=== PATIENT | female | born 1940 | race Caucasian/White ===

== ENCOUNTER 2021-10-12 11:51 | Outpatient (CLI) | payer MEDICARE, SELFPAY ==
--- NOTE | 2021-10-12 12:06 | RAD_ITS ---
INDICATION: CHRONIC COUGH EXAMINATION/TECHNIQUE: X-RAY - XR Chest 2 Views COMPARISON: None. FINDINGS: The lungs are clear. Tortuous and calcified thoracic aorta. The heart is not enlarged. No pleural effusion or pneumothorax. Degenerative changes of the thoracic spine and shoulders. RAD/Chest PA and Lateral IMPRESSION: No acute radiographic abnormalities. Electronically Signed: Reyes Chacon MD at 21:45 EST Tel , Service support ,
== END 2021-10-12 23:59 | disposition short-term general hospital (02) ==
LOC: RAD 11:59
PROVIDERS: PCP Nurse Practitioner Family; Referring Provider Otolaryngology Otolaryngology/Facial Plastic Surgery; Visit Provider Otolaryngology Otolaryngology/Facial Plastic Surgery
DX: R05.9 Cough, unspecified (principal)
CPT/HCPCS: 71046

== ENCOUNTER → 2022-10-12 | Outpatient (CLI) | payer MEDICARE, SELFPAY ==
--- NOTE | 2022-10-12 09:56 | CDU_ITS ---
Reason For Study: Bruit Rt. Velocities/BP Lt. Velocities/BP Prox CCA 77.8/15.4 cm/sec. Prox CCA 62.6/14.5 cm/sec. Mid CCA 70.2/13.5 cm/sec. Mid CCA 53.2/13.5 cm/sec. Dist CCA 57.9/17.3 cm/sec. Dist CCA 45.6/14.5 cm/sec. Prox ICA 58.9/11.6 cm/sec. Prox ICA 439.8/175.8 cm/sec. Mid ICA 68.3/17.3 cm/sec. Mid ICA 335.3/84.9 cm/sec. Dist ICA 67.4/20.1 cm/sec. Dist ICA 97.2/22.6 cm/sec. Rt. ICA/CCA = 0.97. Lt. ICA/CCA = 8.27. Prox ECA 75.9/11.6 cm/sec. Prox ECA 246.6/33.3 cm/sec. Rt. Vert. 67.4/20.1 cm/sec. Lt. Vert. 64.2/20 cm/sec. Right Extracranial There is intimal thickening but no significant atherosclerotic plaque noted in the right common carotid artery. There is intimal thickening but no significant atherosclerotic plaque noted in the right internal carotid artery. There is intimal thickening but no significant atherosclerotic plaque noted in the right external carotid artery. Antegrade flow is noted in the right vertebral artery. Left Extracranial There is homogeneous, smooth atherosclerotic plaque noted in the left common carotid artery. There is homogeneous, irregular atherosclerotic plaque noted in the left internal carotid artery. There is homogeneous, irregular atherosclerotic plaque noted in the left external carotid artery. Antegrade flow is noted in the left vertebral artery. Procedure Carotid Duplex 55293. This is a Carotid Duplex examination using B-mode, color flow and specral Doppler. Preliminary report given to Britt NANCE. Exam performed in department. VL/Carotid Duplex Ultrasound Interpretation Summary Normal right extracranial internal carotid. Severe (>70%) stenosis left extracranial internal carotid. Patent and antegrade vertebrals bilaterally. Ordering Physician: George Herndon Referring Physician: Shonda Rucker Performed By: Pau Brady RVT
[2022-10-13 10:59] LABS: Absolute Lymphocyte Count 2.64 X10^3/uL (0.83-4.51); Absolute Neutrophil Count 5.2 X10^3/uL (2.0-7.7); Basophil# 0.05 X10^3/uL; Basophil% 0.6 % (0-1); Eosinophil# 0.17 X10^3/uL; Hematocrit 40.8 % (37-47); Hemoglobin 13.6 g/dL (12.0-15.0); Lymphocyte # 2.64 X10^3/ul (0.83-4.51); Lymphocyte % 30.3 % (19-41); Mean Corp Hgb Conc 33.3 g/dL (32-36); Mean Corpuscular Hgb 31.1 pg (27.0-32.0); Mean Corpuscular Volume 93.4 fL (81-99); Mean Platelet Vol. 10.1 fl (6.2-12.0); Monocyte# 0.67 X10^3/uL; Monocyte% 7.7 % (0-10); NRBC Flagged by Analyzer 0 % (0-5); Neutrophil # 5.15 X10^3/uL (2.7-7.7); Neutrophil % 59.1 % (47-70); Platelet Count 279 K/mm3 (150-450); RBC Distribution Width CV 14.3 % (11.6-14.6); RBC Distribution Width SD 49.2 fl (35.1-43.9); Red Blood Count 4.37 M/mm3 (4.2-5.4); White Blood Count 8.7 K/mm3 (4.4-11.0)
[2022-10-13 11:35] LABS: Anion Gap 6 (5-15); BUN 17 mg/dL (7-18); BUN/Creat Ratio 18.9 RATIO (10-20); Calcium,Total 9.6 mg/dL (8.5-10.1); Chloride 106 mmol/L (98-107); EST Glomerular Filtration Rate 64 mL/min (>60); Est Glom Filt Rate - Afr Amer 77 mL/min (>60); Glucose 92 mg/dL (74-106); Potassium 4.2 mmol/L (3.5-5.1); Sodium Level 138 mmol/L (136-145)
== END | disposition home or self-care (01) ==
PROVIDERS: Physician Assistant; PCP Registered Nurse; Referring Provider Internal Medicine Cardiovascular Disease; Visit Provider Internal Medicine Cardiovascular Disease
DX: I65.22 Occlusion and stenosis of left carotid artery (principal); I49.1 Atrial premature depolarization; R09.89 Other specified symptoms and signs involving the circulatory and respiratory systems
CPT/HCPCS: 36415; 80048; 85025; 93880

== ENCOUNTER → 2022-11-09 | Outpatient (CLI) | payer MEDICARE, SELFPAY ==
--- NOTE | 2022-11-09 16:00 | CT_ITS ---
STUDY: CTA HEAD AND NECK WITH CONTRAST REASON FOR EXAM: Female, 82 years old patient with carotid stenosis with carotid bruit heard. RADIATION DOSAGE (If Supplied By Facility): CTDIvol = ( 29.15 ) mGy, DLP = ( 1440.05 ) mGycm TECHNIQUE: CT angiography was performed with a multi-detector CT scanner. Data acquisition was obtained from the skull base through the vertex following intravenous administration of 100 mL of IV Isovue-370. MIP images were reconstructed from the axial data set. Post-processing of the angiographic images was performed, with multiplanar reformation and 3D reconstruction. Individualized dose optimization techniques were used for this CT. COMPARISON: No relevant priors. FINDINGS: Normal bilateral petrous carotid arteries. Normal right cavernous carotid artery with a normal supraclinoid bifurcation. Normal left cavernous carotid artery with a normal supraclinoid bifurcation. Normal right A1 segments of the anterior cerebral artery. Normal left A1 segments of the anterior cerebral artery. Normal intact anterior communicating artery (ACOM). Normal bilateral A2 segments of the anterior cerebral arteries. Normal right M1 and M2 segments of the middle cerebral arteries, with a normal M1 bifurcation. Normal left M1 and M2 segments of the middle cerebral arteries, with a normal M1 bifurcation. Normal right posterior communicating artery (PCOM). Normal left posterior communicating artery (PCOM). Normal bilateral vertebral arteries. Normal basilar artery with a normal basilar bifurcation. The visualized bilateral superior cerebellar (SCA) arteries are normal. Normal bilateral P1, P2 and visualized P3 segments of the posterior cerebral arteries. There is no demonstrated aneurysm of the rosebud of [place]. There is no demonstrated abnormality of the visualized brain. AORTIC ARCH: Normal visualized aortic arch. Normal origins of the brachiocephalic, left common carotid, and left subclavian arteries. RIGHT CAROTID ARTERIES: Normal right common carotid artery (CCA). Normal right common carotid bulb. Normal origin of the right internal carotid (ICA) artery without a hemodynamically significant stenosis. Normal visualized cervical portion of the right internal carotid artery. Normal origin of the right external carotid artery (ECA). LEFT CAROTID ARTERIES: Normal left common carotid artery (CCA). Normal left common carotid bulb. Normal origin of the left internal carotid (ICA) artery without a hemodynamically significant stenosis. Normal visualized cervical portion of the left internal carotid artery. Normal origin of the left external carotid artery (ECA). VERTEBRAL ARTERIES: Normal bilateral vertebral arteries. IMPRESSION: Normal CTA Head and neck with contrast. STUDY: CT BRAIN WITHOUT CONTRAST REASON FOR EXAM: Female, 82 years old patient with carotid stenosis with carotid bruit heard. RADIATION DOSAGE (If Supplied By Facility): CTDIvol = ( 29.15 ) mGy, DLP = ( 1440.05 ) mGycm TECHNIQUE: Transaxial CT imaging of the brain was performed without administration of intravenous contrast material. Multiplanar reformations are submitted for interpretation. Individualized dose optimization techniques were used for this CT. COMPARISON: No relevant priors. FINDINGS: Normal soft tissue structures. Normal calvarium. There is moderately severe global cerebral volume loss. There is mild cerebral atrophy with widening of the extra-axial spaces and ventricular dilatation. There are areas of decreased attenuation within the white matter tracts of the supratentorial brain, consistent with microvascular disease changes. Decreased attenuation within the right basal ganglia and external capsule may be the result of previous infarct. Normal brainstem. There is mild cerebellar atrophy. There is no intracranial hemorrhage. There is atherosclerotic calcification of the intracranial arteries. Normal visualized paranasal sinuses. CT/CTA Head AND Neck W/ Contrast IMPRESSION: 1. Chronic involutional changes of the brain. 2. No CT evidence of acute intracranial hemorrhage. Electronically Signed: Anila Dukes MD at 7:12 EST ,
== END | disposition home or self-care (01) ==
LOC: CT 15:59
PROVIDERS: PCP Registered Nurse; Referring Provider Physician Assistant; Visit Provider Physician Assistant
DX: I65.22 Occlusion and stenosis of left carotid artery (principal)
CPT/HCPCS: 70496; 70498; Q9967

== ENCOUNTER 2023-01-04 09:57 | Inpatient (IN) | payer MEDICARE, SELFPAY ==
--- NOTE | 2022-12-28 11:56 | EKG12_ITS ---
Test Reason : PREOP Blood Pressure : / mmHG Vent. Rate : 063 BPM Atrial Rate : 063 BPM P-R Int : 130 ms QRS Dur : 072 ms QT Int : 414 ms P-R-T Axes : 034 016 055 degrees QTc Int : 423 ms Normal sinus rhythm Low voltage QRS Borderline ECG Confirmed by QUITA BOLES, AMY ([id number]), development editor ZENAIDA PEÑA ([id number]) on 12/29/2022 9:19:09 AM Referred By: Coleman Reyna Confirmed By:AMY DEVLIN MD
[2022-12-28 12:39] LABS: Hematocrit 40.4 % (37-47); Hemoglobin 13.2 g/dL (12.0-15.0); Mean Corp Hgb Conc 32.7 g/dL (32-36); Mean Corpuscular Hgb 31.1 pg (27.0-32.0); Mean Corpuscular Volume 95.1 fL (81-99); Mean Platelet Vol. 10.3 fl (6.2-12.0); Platelet Count 300 K/mm3 (150-450); RBC Distribution Width CV 14.5 % (11.6-14.6); RBC Distribution Width SD 50.8 fl (35.1-43.9); Red Blood Count 4.25 M/mm3 (4.2-5.4); White Blood Count 8.4 K/mm3 (4.4-11.0)
[2022-12-28 13:30] LABS: Thyroid Stim Hormone (TSH) 0.71 uIU/mL (0.358-3.74)
[2022-12-28 13:43] LABS: Anion Gap 4 (5-15); BUN 19 mg/dL (7-18); BUN/Creat Ratio 19.5 RATIO (10-20); Calcium,Total 9.4 mg/dL (8.5-10.1); Chloride 108 mmol/L (98-107); Creatinine, Serum 0.98 mg/dL (0.55-1.02); EST Glomerular Filtration Rate 58 mL/min (>60); Est Glom Filt Rate - Afr Amer 70 mL/min (>60); Glucose 79 mg/dL (74-106); Potassium 4.9 mmol/L (3.5-5.1); Sodium Level 137 mmol/L (136-145)
[2023-01-04] VITALS (13 sets, daily range): BP systolic 100–146; BP diastolic 51–68; PULSE 54–66; RESP 14–18; TEMP 36.1–36.7; O2SAT 94–100; BMI 26.4; BMI 26.3
[2023-01-04] MEDS: Lactated Ringers 1,000 ML 15 ML IV (10:37)
--- NOTE | 2023-01-04 10:53 | HP.PCM_ITS ---
History and Physical Allergies dicyclomine [From Bentyl] Adverse Reaction (Severe, Verified 12/06/22 15:05) Extreme Nervousnessomeprazole Adverse Reaction (Severe, Verified 12/06/22 15:05) GIprednisolone Adverse Reaction (Severe, Verified 12/06/22 15:05) Heart Racing Medications aspirin 81 mg tablet,delayed release 81 mg PO QDAY 05/16/18 [History Confirmed 12/06/22] calcium carbonate 600 mg calcium (1,500 mg) tablet 600 mg PO BID 05/16/18 [History Confirmed 12/06/22] cholecalciferol (vitamin D3) 25 mcg (1,000 unit) tablet 1,000 unit PO QDAY 05/16/18 [History Confirmed 12/06/22] multivitamin 1 tab PO QDAY 05/16/18 [History Confirmed 12/06/22] levothyroxine 137 mcg capsule 137 mcg PO DAILY 12/26/18 [History Confirmed 12/06/22] metoprolol succinate 100 mg tablet,extended release 24 hr 100 mg PO DAILY #90 tabs 08/08/22 [Rx Confirmed 12/06/22] omega 9-oqb-msz-fish oil 60 mg-90 mg-500 mg capsule (Fish Oil) 1 cap PO DAILY 10/06/22 [History Confirmed 12/06/22] atorvastatin 80 mg tablet 80 mg PO QHS #90 tabs 10/28/22 [Rx Confirmed 12/06/22] PFSH Medical History?(Updated 12/06/22 @ 16:[address] Coleman Reyna MD) Cardiac dysrhythmia, unspecified Carpal tunnel syndrome Hyperlipidemia Hypothyroidism Premature atrial contractions Premature ventricular contraction Surgical History? H/O left breast biopsy History of cholecystectomy History of right oophorectomy Hx of appendectomy Family History? Mother?? CVA (cerebral vascular accident) Social History? Smoking Status:? Current every day smoker Tobacco: How many years used:? 50 alcohol intake:? never HPI HPI HPI: TIFFANY CASILLAS, is a 82 F who presents to the office today for further discussion of left carotid stenosis, asymptomatic. Found after bruit heard on exam. No prior knowledge of stenosis, no prior numbness/weakness/vision loss/speech difficulty. Has had a duplex and CTA. Tolerating ASA, statin. Not currently on plavix. ROS General General: No weight change, appetite, fatigue, colon cancer, breast cancer or weakness HEENT HEENT: No difficulty swallowing, eye injury, eye surgery, swollen glands or hoarseness Endo Endocrine: Yes thyroid disease; No diabetes mellitus, thyroid cancer, Hair loss, heat intolerance or cold intolerance Skin Skin: No rash or changing moles Musc Musculoskeletal: Yes back problems and arthritis; No rheumatoid arthritis, gout or joint pain Cardio Cardiovascular: No murmur, pacemaker, heart disease, atrial fibrillation, high blood pressure, heart attack, heart stent, palpitations, shortness of breat with exertion or chest pain Psych Psychiatric: Yes anxiety; No depression or hearing voices Resp Respiratory: Yes shortness of breath, No sleep apnea, No cough, No COPD, No a sthma, No emphysema and No wheezing Gastro Gastrointestinal: No abdominal pain, No nausea or vomiting, No diarrhea, No constipation, No blood in stool, Yes acid reflux, Yes hemorrhoids, No ulcers, No gallbladder problem and No black,tarry stools Shahriar Hematologic: Yes blood thinners, No blood disorders, No bleeding, No anemia and No blood clots Neuro Neurologic: No system reviewed and no additional complaints, except as documented, No as per HPI, No abnormal gait, No abnormal hearing, No abnormal movements, No abnormal speech, No behavioral changes, No burning sensations, No confusion, No convulsions, No disequilibrium, No dizziness, No localized weakness, No frequent falls, No headache(s), No lack of coordination, No loss of vision, No memory loss, Yes numbness, No other visual disturbances, No radicular pain, No restless legs, No sensory deficit, No syncope, Yes tingling, No tremor(s), No weakness and No other Exam Const General: cooperative, healthy appearing, comfortable, no acute distress and well developed Nutritional Appearance: well nourished Orientation: alert, awake and oriented x3 HENMT Head: normocephalic and atraumatic Ears: hearing grossly normal bilaterally Nose: external nose normal Eyes General: appearance normal, both eyes and all related structures EOM: EOM intact bilaterally Neck Neck: normal visual inspection, full ROM, no lymphadenopathy and trachea midline Thyroid: thyroid normal Lymphatic: no lymphadenopathy noted Resp Effort & Inspection: normal respiratory effort, able to speak in complete sentences, symmetric chest movement, no audible wheezes, not labored, no stridor and no use of accessory muscles Auscultation: clear to auscultation bilaterally Cardio Rate: regular rate Rhythm: regular rhythm Heart Sounds: murmur Bruits: carotid bruit Pulses: brachial pulses present and radial pulses present Skin General: no rashes or lesions noted and no erythema Wounds: no wounds Neuro Cranial Nerves: CN's II-XI intact bilaterally and EOM intact bilaterally Speech: speech normal Gait: normal gait Motor: strength 5/5 throughout Sensory Exam: no sensory deficits noted Extremities Pulses: Absent: Right Dorsalis Pedis Pulse, Left Dorsalis Pedis Pulse, Right Posterior Tibial Pulse and Left Posterior Tibial Pulse Lower Extremity Edema: None: Bilateral Psych Appearance: grossly normal and well kempt Mental Status: mental status grossly normal Mood: congruent mood Speech and Movement: speech and movement normal Thought Content: normal Judgment: judgment good Coding Level of Care Code Off vis,est,level 3 Diagnoses Carotid artery stenosis? I65.29 Assessment and Plan Assessment and Plan (1) Carotid artery stenosis: -left cea
--- NOTE | 2023-01-04 12:00 | PLAQ_PTH ---
PATIENT: TIFFANY CASILLAS LOC: ICU U#:[id number] AGE/SX: 82/F ROOM: ICU01 RE01/04/[address]: Dr. Coleman Reyna MD : 1940 BED: 1 DIS: 01/05/2023 SPEC #: [id number] RECD: 01/04/23 16:41 STATUS: ZEINAB REQ #: [id number] MEERA: 01/04/23 12:[address]: Coleman Reyna DEPT: SURGICAL PATHOLOGY RECD BY: Scarlett Poewrs ENTERED: 01/05/23 07:55 SP TYPE: PLAQUE OTHR DR: MD Shonda Mcmahan, [employer] SUPERVISOR-C Tissues: PLAQUE Procedures: Decalcification bone/plaque Surgery Specimen Level III HEADER OPERATION: Carotid endarterectomy PRE-OP DIAGNOSIS: Carotid artery stenosis TISSUE SUBMITTED: Carotid plaque MICROSCOPIC DIAGNOSIS Carotid plaque, endarterectomy: Atherosclerotic plaque consistent with severe stenosis. AM:getachew 01/09/2023 GROSS DESCRIPTION Received in fixative is one container labeled with the patient's name and designated carotid plaque. The specimen consists of a yellow-sky calcified plaque-like material measuring 3.0 x 1.0 x 0.7 cm. The specimen is sectioned and totally submitted in one cassette after decalcification. / AM:getachew 01/05/2023 TC:5 CPT: 92177, 86050
[2023-01-04] MEDS: Cefazolin 2 GM in 0.9% Normal Saline 100 ML IV (12:20)
[2023-01-04] MEDS: Heparin Injection (Vial) 5,000 UNIT/ML VIAL 5000 UNIT (13:00)
[2023-01-04] MEDS: Bupivacaine 0.25% 30 ML Vial (15:11)
--- NOTE | 2023-01-04 15:17 | OP.PCM_ITS ---
Report of Operation Date of Procedure: 01/04/23 Pre-Operative Diagnosis: left carotid stenosis Post-Operative Diagnosis: same Surgery/Procedure Performed:: left carotid endarterectomy Surgeon: Coleman Reyna Type of Anesthesia: General Drains: 19 Fr CLEM Estimated Blood Loss (mL): 5 Description of Procedure: HPI: Patient is an 82-year-old female with high-grade left internal carotid artery stenosis which is asymptomatic in nature. She is on optimal medical therapy, and CT angiography confirmed patient was a potential candidate for either carotid endarterectomy or carotid stenting of which the patient chose endarterectomy. She is taken now for elective left carotid endarterectomy. Description of procedure: Upon obtaining informed consent and verification correct patient procedure site the patient was taken to the operating room she was placed under general anesthesia. She was then positioned prepped and draped in usual sterile fashion and timeout performed. Oblique incision made along the anterior border the sternocleidomastoid and Bovie electrocautery was dissect down through subcutaneous tissue to the platysma which was then divided. Self- retaining retractors then put in position and further dissection carried down to the anterior border the sternocleidomastoid which was freed allowing lateral retraction exposing the jugular vein. Sharp dissection was then used to dissect free the anterior surface of the jugular vein, with the facial vein identified and ligated with silk ties and divided. Sharp dissection was then used to dissect free the proximal common carotid artery with care taken to identify and protect the vagus nerve which was in its normal anatomic position. The vessel was then dissected free circumferentially and a right angle was placed vessel loop. We then turned attention to the distal internal carotid artery which was dissected free beyond the area of visible plaque, with care taken to identify and protect the hypoglossal and vagus nerves. The vessel was then circumferentially dissected free and a running was placed vessel loop. Patient was then heparinized allowed to circulate for 3 minutes with serial ACT's performed for heparin dosing. Next the external carotid artery was dissected free and a right angle was placed vessel loop. This was then occluded first the internal followed by the common and external. Longitudinal arteriotomy was created with 11 blade on the common carotid artery and extended with Holland scissors onto the internal carotid artery beyond the area of plaque. A 10 [place] shunt was then placed first distally in the internal carotid artery and allowed to backbleed before placing proximally in the common carotid artery. The shunt was interrogated with Doppler and found to be patent with low resistance signal. We then performed her endarterectomy with a freer elevator, with satisfactory endpoint distally on the internal carotid artery and eversion endarterectomy on the external carotid artery. The lumen was flushed with heparinized saline to clear debris in the distal endpoint tacked with 7-0 Prolene interrupted sutures. A bovine pericardial patch was brought in the field and secured in position using 6-0 Prolene in a running fashion. Prior to completing the suture line the shunt was removed and the vessels backbled. After completing the suture line the internal carotid artery was allowed to backbleed and the bifurcation then reoccluded as origin. Clamps were then removed from the external and common carotid arteries allowing 10 heartbeats of antegrade flow to flush into the external carotid artery before reestablishing flow into the internal carotid artery. Satisfactory stasis was noted along the suture line the patient was then reversed with protamine. A 19 [place]ian channel CLEM was placed via separate stab incision and Surgicel topical hemostatic applied. Once satisfactory hemostasis was found the incision was closed with 2- 0 Vicryl, 3-0 Vicryl, 4 Monocryl and Dermabond for the skin. Dry sterile dressings were then applied and the patient was awakened from anesthesia moving all extremities to command. She was then taken to the intensive. For close hemodynamic and neurologic monitoring.
[2023-01-04] MEDS: Dext 5%-0.45% NS 1,000 ML 75 ML IV (17:23)
[2023-01-04] MEDS: Cefazolin 1 GM/50 ML BAG IV (20:35)
[2023-01-04] MEDS: Acetaminophen 500 MG Tablet 1000 MG PO (20:40)
[2023-01-04] MEDS: Atorvastatin Calcium 80 MG Tablet PO (20:41)
[2023-01-05] VITALS (12 sets, daily range): BP systolic 97–121; BP diastolic 43–72; PULSE 56–65; RESP 14–17; TEMP 36.2–36.6; O2SAT 94–98; BMI 27.1
[2023-01-05] MEDS: Cefazolin 1 GM/50 ML BAG IV (04:10)
[2023-01-05] MEDS: Acetaminophen 500 MG Tablet 1000 MG PO (05:51)
[2023-01-05] MEDS: Levothyroxine 137 MCG Tablet PO (05:51)
[2023-01-05 06:12] LABS: Absolute Lymphocyte Count 2.44 X10^3/uL (0.83-4.51); Absolute Neutrophil Count 5.9 X10^3/uL (2.0-7.7); Basophil# 0.04 X10^3/uL; Basophil% 0.4 % (0-1); Eosinophil# 0.07 X10^3/uL; Eosinophils% 0.8 % (0-5); Hematocrit 31.4 % (37-47); Hemoglobin 10.5 g/dL (12.0-15.0); Lymphocyte # 2.44 X10^3/ul (0.83-4.51); Lymphocyte % 26.7 % (19-41); Mean Corp Hgb Conc 33.4 g/dL (32-36); Mean Corpuscular Hgb 31.2 pg (27.0-32.0); Mean Corpuscular Volume 93.2 fL (81-99); Mean Platelet Vol. 10.4 fl (6.2-12.0); Monocyte# 0.72 X10^3/uL; Monocyte% 7.9 % (0-10); NRBC Flagged by Analyzer 0 % (0-5); Neutrophil # 5.85 X10^3/uL (2.7-7.7); Platelet Count 251 K/mm3 (150-450); RBC Distribution Width CV 14.6 % (11.6-14.6); Red Blood Count 3.37 M/mm3 (4.2-5.4)
[2023-01-05 06:27] LABS: White Blood Count 9.1 K/mm3 (4.4-11.0)
[2023-01-05] MEDS: Dext 5%-0.45% NS 1,000 ML 75 ML IV (06:43)
[2023-01-05 08:19] LABS: Anion Gap 5 (5-15); BUN 11 mg/dL (7-18); BUN/Creat Ratio 14.3 RATIO (10-20); Calcium,Total 8.1 mg/dL (8.5-10.1); Chloride 107 mmol/L (98-107); Creatinine, Serum 0.77 mg/dL (0.55-1.02); EST Glomerular Filtration Rate 76 mL/min (>60); Est Glom Filt Rate - Afr Amer 92 mL/min (>60); Estimated Creatinine Clearance 37.45 ml/min; Glucose 123 mg/dL (74-106); Potassium 3.5 mmol/L (3.5-5.1); Sodium Level 137 mmol/L (136-145)
[2023-01-05] MEDS: Metoprolol(XL)Succ 100 MG Tablet PO (09:05)
[2023-01-05] MEDS: Aspirin E.C. 81 MG Tablet PO (09:06)
[2023-01-05] MEDS: Multivitamins,Therapeutic Tablet 1 TABLET PO (09:06)
[2023-01-05] MEDS: Cholecalciferol (VIT D3) 25 MCG TABLET (1,000 UNITS) PO (09:06)
[2023-01-05] MEDS: Enoxaparin 40 MG/0.4 ML Syringe SC (09:06)
[2023-01-05] MEDS: Calcium (Elemental) 500 MG Tablet PO (09:06)
[2023-01-05 12:04] LABS: ACT Activated Clotting Time 293 sec (74-137)
[2023-01-05 12:04] LABS: ACT Activated Clotting Time 119 sec (74-137)
--- NOTE | 2023-01-05 12:05 | PCM.PN.SRG ---
Subjective Subjective Feeling better this morning, no numbness/weakness/vision loss/speech difficulty. Mild headache, has not worsened since yesterday. Tammi diet, up in chair. Objective Data Objective Data A&O x 3, NAD RRR Resp non labored CN intact, motor/sensory intact Inc C/D/I no hematoma/erythema CLEM sero-sang Vital Signs: Vital Signs Temp Pulse Resp BP Pulse Ox O2 Del Method FiO2 97.1 F L 59 L 17 121/72 H 94 Room Air 100 01/05/23 08:00 01/05/23 11:00 01/05/23 11:00 01/05/23 11:00 01/05/23 11:00 01/05/23 11:00 01/04/23 15:44 Oxygen Delivery Method Room Air Weight: 158 lb 15.253 oz Body Mass Index (BMI) 27.1 Intake & Output: Intake and Output for Last 24 Hours 01/03/23 01/04/23 01/05/23 23:59 23:59 23:59 Intake Total 160 / 160 1050 / 1050 Output Total 30 / 30 Balance 160 / 160 1020 / 1020 Lab / Micro Data Result Diagrams: 01/05/23 04:15 01/05/23 04:15 Labs: Laboratory Results - last 24 hr 01/04/23 12:35: Activated Clotting Time 119 01/04/23 13:47: Activated Clotting Time 293 H 01/05/23 04:15: WBC 9.1, RBC 3.37 L, Hgb 10.5 L, Hct 31.4 L, MCV 93.2, MCH 31.2, MCHC 33.4, RDW Std Deviation 50.0 H, RDW Coeff of Gloria 14.6, Plt Count 251, MPV 10.4, Immature Gran % (Auto) 0.200, Neut % (Auto) 64.0, Lymph % (Auto) 26.7, Gregg % (Auto) 7.9, Eos % (Auto) 0.8, Baso % (Auto) 0.4, Absolute Neuts (auto) 5.9, Absolute Lymphs (auto) 2.44, Nucleated RBC % 0 01/05/23 04:15: Sodium 137, Potassium 3.5, Chloride 107, Carbon Dioxide 25.0, Anion Gap 5, BUN 11, Creatinine 0.77, Estim Creat Clear Calc 37.45, Est GFR (MDRD) Af Amer 92, Est GFR (MDRD) Non-Af 76, BUN/Creatinine Ratio 14.3, Glucose 123 H, Calcium 8.1 L Assessment & Plan Assessment/Plan (1) Carotid artery stenosis: PLAN: -neuro intact -hemodynamically stable -progressive diet and ambulation -CLEM removed -DC plan later today if doing well and no worsening/severe headache
--- NOTE | 2023-01-05 12:09 | DS.PCM_ITS ---
Providers Date of Admission: 01/04/23 Primary Care Physician: Shonda Rucker NP-C Reason For Visit: LEFT CAROTID ENDARTERECTOMY Diagnosis Discharge Diagnosis (1) Carotid artery stenosis: Status: Acute Code(s): I65.29 - Occlusion and stenosis of unspecified carotid artery Plan: -neuro intact -hemodynamically stable -progressive diet and ambulation -CLEM removed -DC plan later today if doing well and no worsening/severe headache Medications at Discharge Home Medications aspirin 81 mg tablet,delayed release 81 mg PO QDAY HEART HEALTH 05/16/18 calcium carbonate 600 mg calcium (1,500 mg) tablet 600 mg PO BID SUPPLEMENT 05/16/18 cholecalciferol (vitamin D3) 25 mcg (1,000 unit) tablet 1,000 unit PO QDAY SUPPLEMENT 05/16/18 multivitamin 1 tab PO QDAY SUPPLEMENT 05/16/18 levothyroxine 137 mcg capsule 137 mcg PO DAILY THYROID 12/26/18 omega 3-bpt-jxv-fish oil 60 mg-90 mg-500 mg capsule (Fish Oil) 1 cap PO DAILY SUPPLEMENT 10/06/22 atorvastatin 80 mg tablet 80 mg PO QHS CHOLESTEROL 12/21/22 metoprolol succinate 100 mg tablet,extended release 24 hr 100 mg PO DAILY HEART 12/21/22 oxycodone 5 mg tablet 5 mg PO Q4H PRN PRN Pain Score 4-10 4 days #12 tabs 01/05/23 Hospital Course Operations - (left carotid endarterectomy ) Summary of Care Provided Hospital Course: Patient presented 01/04/2023 for elective outpatient left carotid endarterectomy for stroke prevention. She tolerated the procedure well and was admitted to the intensive care unit postop for hemodynamic and neurologic monitoring. Overnight she was hemodynamically stable with no need for significant blood pressure adjusting medications, was neurologically intact, and with no signs of any bleeding. On the morning of postoperative day # 1 her arterial line was removed, CLEM was removed, and she was progressed along activity and diet. After she was tolerating regular diet, ambulating without difficulty, and voiding she was prepared for discharge in the afternoon of postoperative day #1. Physical Exam Const alert, oriented x3, no apparent distress and healthy appearing General Appearance: cooperative; Negative for combative or lethargic Orientation / Consciousness: awake Exam Limitations: no limitations HEENT Head and Scalp: normocephalic and atraumatic Eyes EOMs intact bilaterally General Eye: normal appearance of both eyes Neck full ROM General: trachea midline Lymph Lymphatic: Negative for no lymphadenopathy noted Resp normal respiratory effort and no use of accessory muscles Effort and Inspection: Negative for labored, stridor or audible wheezes Cardio regular rate and regular rhythm Peripheral Pulses: radial pulses present Back/Spine Cervical Spine: cervical ROM normal Extremity full ROM, normal capillary refill and no clubbing, cyanosis or edema Skin no rashes or lesions noted Neuro oriented x3, CN's II-XII intact bilaterally, no focal motor deficits and no sensory deficits noted Psych thought process normal, cooperative, affect normal, speech normal and activity/motor behavior normal Weight / BMI Weight Weight: 158 lb 15.253 oz Body Mass Index (BMI) 27.1 ABG / Lab / Microbiology Data Result Diagrams: 01/05/23 04:15 01/05/23 04:15 Laboratory: Laboratory Results - last 24 hr 01/04/23 12:35: Activated Clotting Time 119 01/04/23 13:47: Activated Clotting Time 293 H 01/05/23 04:15: WBC 9.1, RBC 3.37 L, Hgb 10.5 L, Hct 31.4 L, MCV 93.2, MCH 31.2, MCHC 33.4, RDW Std Deviation 50.0 H, RDW Coeff of Gloria 14.6, Plt Count 251, MPV 10.4, Immature Gran % (Auto) 0.200, Neut % (Auto) 64.0, Lymph % (Auto) 26.7, [place] % (Auto) 7.9, Eos % (Auto) 0.8, Baso % (Auto) 0.4, Absolute Neuts (auto) 5.9, Absolute Lymphs (auto) 2.44, Nucleated RBC % 0 01/05/23 04:15: Sodium 137, Potassium 3.5, Chloride 107, Carbon Dioxide 25.0, Anion Gap 5, BUN 11, Creatinine 0.77, Estim Creat Clear Calc 37.45, Est GFR (MDRD) Af Amer 92, Est GFR (MDRD) Non-Af 76, BUN/Creatinine Ratio 14.3, Glucose 123 H, Calcium 8.1 L D/C Instructions Discharge Diet: No restrictions May shower in (days): 1 Lifting Restrictions: do not lift > 20 lbs for 3 weeks Call your doctor if your incision/area has: Sudden Increased Bleeding, Increased Pain/ Swelling, Increased Redness and Foul Smelling Discharge Call your doctor if you observe: Fever of 101 or Higher Remove Dressing in: 1 day Cleanse incision/area with: Soap & Water Meaningful Use Info Meaningful Use Diagnoses (Choose all that apply): None applicable Discharge Plan Admission Admit Date/Time: 01/04/23 09:57 Attending Provider: Coleman Reyna Primary Care Provider: Shonda Rucker NP Consulting Providers: Pola Muir Discharge Orders/Prescriptions Prescriptions: New oxycodone 5 mg Tablet 5 mg PO Q4H PRN PRN (Reason: Pain Score 4-10) 4 Days Qty: 12 0RF Continued aspirin 81 mg tablet,delayed release (DR/EC) 81 mg PO QDAY calcium carbonate 600 mg calcium (1,500 mg) tablet 600 mg PO BID multivitamin tablet 1 tab PO QDAY cholecalciferol (vitamin D3) 1,000 unit tablet 1,000 unit PO QDAY omega 9-ace-mua-fish oil [Fish Oil] 60-90-500 mg capsule 1 cap PO DAILY atorvastatin 80 mg tablet 80 mg PO QHS metoprolol succinate 100 mg tablet extended release 24 hr 100 mg PO DAILY levothyroxine 137 mcg capsule 137 mcg capsule 137 mcg PO DAILY Referrals / Follow Up: Shonda Rucker NP, [employer]-C [Primary Care Provider] - Disposition Disposition (needs filled in before D/C Order can be placed): Home, Self Care
[2023-01-05 12:11] LABS: ACT Activated Clotting Time 263 sec (74-137)
--- NOTE | 2023-01-05 12:30 | CASEMGMT ---
RN CM Face to Face with patient for initial transition planning/care coordination assessment. RN CM introduced self and role at [facility]. Patient lying in bed, alert and oriented, grandson at bedside. Patient willing to participate in assessment and is able to answer all questions appropriately. Care providers, pharmacy, and demographics verified. Patient wishes to discharge home, denies need for home health at this time. Patient states she has no further needs or concerns at this time. CM to follow for discharge planning needs that may arise. PCP: Alka CALLAWAY Specialists: Summer Aviles Pharmacy: [facility] Insurance: [employer] [facility] Prescription Benefit: yes Living Will/HPOA: yes, son Nile Jones Jr LNOK: son, DAVID Living Arrangements: Patient lives alone in a single floor condo with 1 step to enter. Patient states she is independent at home. Transportation: self DME/HHC: Patient has grab bars and built in shower chair at home. No previous HHC or SNF. Disposition Plan: Patient to discharge home with family support and follow-up plans in place. Pau ALTAMIRANO, RN, CM
== END 2023-01-05 13:30 | disposition home or self-care (01) | DRG 39 ==
LOC: ACINP 10:00 → ICU 16:00
PROVIDERS: Anesthesiology; Admitting Provider Surgery Trauma Surgery; PCP Registered Nurse; Referring Provider Surgery Trauma Surgery; Visit Provider Surgery Trauma Surgery
PROC: 03CL0ZZ Extirpation of Matter from Left Internal Carotid Artery, Open Approach (ICD-10-PCS; CPT 35301; principal; 2023-01-04 11:40)
DX: I65.22 Occlusion and stenosis of left carotid artery (principal); E03.9 Hypothyroidism, unspecified; E78.5 Hyperlipidemia, unspecified; F17.200 Nicotine dependence, unspecified, uncomplicated; Z79.82 Long term (current) use of aspirin; Z79.890 Hormone replacement therapy; Z79.899 Other long term (current) drug therapy
CPT/HCPCS: 36415; 80048; 84443; 85025; 85027; 85347; 86850; 86900; 86901; 88304; 88311; 93005; 94668; 97802; A4648; J7030; J7120; J7799

== ENCOUNTER → 2024-05-17 | Outpatient (CLI) | payer MEDICARE, SELFPAY | END | disposition home or self-care (01) | PROVIDERS: PCP Registered Nurse; Referring Provider Internal Medicine Endocrinology, Diabetes & Metabolism; Visit Provider Internal Medicine Endocrinology, Diabetes & Metabolism | DX: E03.8 Other specified hypothyroidism (principal) | CPT/HCPCS: 36415; 84443 ==

== ENCOUNTER → 2024-09-09 | Outpatient (CLI) | payer MEDICARE, SELFPAY ==
[2024-09-09 16:20] LABS: ALB/GLOB Ratio 0.8 RATIO (0.9-2.4); AST(SGOT) 28 U/L (15-37); Alanine Aminotransfer ALT/SGPT 28 U/L (13-56); Albumin, Serum 3.3 g/dL (3.2-5.0); Alkaline Phosphatase 72 U/L (45-117); Anion Gap 7 (5-15); BUN 19 mg/dL (7-18); BUN/Creat Ratio 20.3 RATIO (10-20); Calcium,Total 8.8 mg/dL (8.5-10.1); Chloride 108 mmol/L (98-107); Creatinine, Serum 0.94 mg/dL (0.55-1.02); EST Glomerular Filtration Rate 60 mL/min (>60); Est Glom Filt Rate - Afr Amer 73 mL/min (>60); Globulin 3.9 g/dL (2.2-4.2); Glucose 98 mg/dL (74-106); Potassium 4.2 mmol/L (3.5-5.1); Protein, Total 7.2 g/dL (6.4-8.2); Sodium Level 138 mmol/L (136-145)
== END | disposition home or self-care (01) ==
LOC: LAB 14:02
PROVIDERS: PCP Family Medicine; Referring Provider Internal Medicine Endocrinology, Diabetes & Metabolism; Visit Provider Internal Medicine Endocrinology, Diabetes & Metabolism
DX: E03.8 Other specified hypothyroidism (principal)
CPT/HCPCS: 36415; 80053; 84443

== ENCOUNTER → 2024-12-03 | Outpatient (CLI) | payer MEDICARE, SELFPAY ==
--- NOTE | 2024-12-03 13:43 | VDLE_ITS ---
Reason For Study Reason For Study: BLE Pain RIGHT LEFT GSV is normal. GSV is normal. CFV is compressible, spontaneous, phasic, competent CFV is compressible, spontaneous, phasic, competent, and demonstrates normal augmentation. and demonstrates normal augmentation. FV is compressible, spontaneous, phasic, competent FV is compressible, spontaneous, phasic, competent and demonstrates normal augmentation. and demonstrates normal augmentation. POP V is compressible, spontaneous, phasic, competent POP V is compressible, spontaneous, phasic, competent and demonstrates normal augmentation. and demonstrates normal augmentation. T/P Trunk is compressible. T/P Trunk is compressible. PTV is compressible. PTV is compressible. RT PerV is compressible. LT PerV is compressible. Procedure This is a venous duplex using B-mode, color flow and spectral Doppler. Exam performed in department. The exam was diagnostic. VL/Venous Duplex US - Juve Extrem Interpretation Summary Deep veins of the lower extremities are bilaterally patent and compressible seg mentally. There is no evidence of deep vein thrombosis on either side. Valvular competence appears intact within the p roximal deep venous systems bilaterally. The great saphenous veins appear bilaterally patent and compressible segmentall y. Ordering Physician: David Potter Referring Physician: David Potter Performed By: James Garduno, RVT
--- NOTE | 2024-12-03 13:43 | ART_ITS ---
Reason For Study Reason For Study: PVD Procedure A bilateral lower extremity continuous wave Doppler with analog waveform analysis,segmental pressures,and ankle brachial indexes without exercise. Left Segmental Pressures Left brachial= 147mmHg. Left calf = 156mmHg. Left posterior tibial artery = 145mmHg. Left dorsalis pedis artery = 151mmHg. Left digit = 110 mmHg. The left posterior tibial artery waveforms are biphasic. The left dorsalis pedis waveforms are biphasic. Right Segmental Pressures Right brachial= 148mmHg. Right calf = 159mmHg. Right posterior tibial artery = 142mmHg. Right dorsalis pedis artery = 136mmHg. Right digit = 92 mmHg. The right posterior tibial artery waveforms are biphasic. The right dorsalis pedis waveforms are biphasic. Indices The right ankle brachial index by the posterior tibial artery is 0.96. The right ankle brachial index by the dorsalis pedis is 0.92. The right digital-brachial index is 0.62. The left ankle brachial index by the posterior tibial artery is 0.98. The left ankle brachial index by the dorsalis pedis is 1.02. The left digital-brachial index is 0.74. VL/Lower Ext Art Exam w/o Exercis Interpretation Summary Biphasic Doppler waveforms are noted at ankle level bilaterally. Pulse-volume r ecordings appear satisfactory at all levels bilaterally. The resting right ankle-brachial index is minimally diminis hed. The resting left ankle-brachial index is normal. The right digital-brachial index is mildly diminished. The lef t digital-brachial index is normal. There appears to be minimal/mild arterial occlusive disease in the right lower extremity. There is no evidence of significant arterial occlusive disease in the left lower extremity. Ordering Physician: David Potter Referring Physician: Daniele Rich M.D. Performed By: James Garduno RVT
== END | disposition home or self-care (01) ==
PROVIDERS: PCP Family Medicine; Referring Provider Podiatrist Foot & Ankle Surgery; Visit Provider Podiatrist Foot & Ankle Surgery
DX: I73.89 Other specified peripheral vascular diseases (principal); M79.604 Pain in right leg; M79.605 Pain in left leg
CPT/HCPCS: 93923; 93970

== ENCOUNTER → 2025-04-09 | Outpatient (CLI) | payer MEDICARE, SELFPAY ==
[2025-04-09 14:36] LABS: Vitamin D,25 Hydroxy 55.4 ng/mL (30-100)
== END | disposition home or self-care (01) ==
LOC: LAB 13:07
PROVIDERS: PCP Family Medicine; Referring Provider Internal Medicine Endocrinology, Diabetes & Metabolism; Visit Provider Internal Medicine Endocrinology, Diabetes & Metabolism
DX: E03.8 Other specified hypothyroidism (principal); E55.9 Vitamin D deficiency, unspecified
CPT/HCPCS: 36415; 82306; 84443

== ENCOUNTER → 2025-04-10 | Outpatient (CLI) | payer MEDICARE, SELFPAY ==
[2025-04-10 14:33] LABS: AST(SGOT) 21 U/L (<=31); Alanine Aminotransfer ALT/SGPT 17 U/L (<=34); Albumin, Serum 4.1 g/dL (3.4-4.8); Alkaline Phosphatase 80 U/L (35-104); Anion Gap 10 (5-15); BUN 16 mg/dL (4-19); BUN/Creat Ratio 15.7 RATIO (10-20); Calcium,Total 9.8 mg/dL (7.6-11.0); Carbon Dioxide 25.5 mmol/L (21.0-32.0); Chloride 104 mmol/L (98-108); Globulin 3.0 g/dL (2.2-4.2); Glucose 85 mg/dL (70-99); Potassium 4.5 mmol/L (3.3-5.1); Vitamin D,25 Hydroxy 56.9 ng/mL (30-100)
== END | disposition home or self-care (01) ==
LOC: LAB 12:30
PROVIDERS: PCP Family Medicine; Referring Provider Internal Medicine Endocrinology, Diabetes & Metabolism; Visit Provider Internal Medicine Endocrinology, Diabetes & Metabolism
DX: E03.8 Other specified hypothyroidism (principal); E55.9 Vitamin D deficiency, unspecified
CPT/HCPCS: 80053; 82306; 84443

== ENCOUNTER → 2025-07-14 | Outpatient (CLI) | payer MEDICARE, SELFPAY | END | disposition home or self-care (01) | PROVIDERS: PCP Family Medicine; Visit Provider Nurse Practitioner Family | DX: R30.9 Painful micturition, unspecified (principal) | CPT/HCPCS: 87077; 87086; 87088; 87186 ==

== ENCOUNTER → 2025-07-16 | Outpatient (CLI) | payer MEDICARE, SELFPAY ==
[2025-07-16 14:38] LABS: Free T3 2.3 pg/mL (2.18-3.98)
== END | disposition home or self-care (01) ==
LOC: LAB 13:34
PROVIDERS: PCP Family Medicine; Referring Provider Nurse Practitioner Family; Visit Provider Nurse Practitioner Family
DX: E03.9 Hypothyroidism, unspecified (principal)
CPT/HCPCS: 36415; 84439; 84443; 84481

== ENCOUNTER → 2025-07-24 | Outpatient (CLI) | payer MEDICARE, SELFPAY ==
[2025-07-24 15:47] LABS: Vitamin B12 460 pg/mL (180-914)
== END | disposition home or self-care (01) ==
LOC: MTLAB 11:13
PROVIDERS: PCP Family Medicine; Referring Provider Family Medicine; Visit Provider Family Medicine
DX: L65.8 Other specified nonscarring hair loss (principal)
CPT/HCPCS: 36415; 82607; 84403